=== PATIENT | male | born 1965 | race Caucasian/White ===

== ENCOUNTER 2018-07-20 14:55 | Emergency (ER) | payer SELFPAY ==
[~2018-07-20] VITALS: Ht 177.8 cm; Wt 85.0 kg
[2018-07-20 15:00] VITALS: BP 168/72
== END 2018-07-20 17:12 | disposition home or self-care (01) ==
LOC: ER 14:55
DX: S10.83XA Contusion of other specified part of neck, initial encounter (principal); S30.0XXA Contusion of lower back and pelvis, initial encounter; E03.9 Hypothyroidism, unspecified; V49.49XA Driver injured in collision with other motor vehicles in traffic accident, initial encounter; Y93.89 Activity, other specified; Y92.89 Other specified places as the place of occurrence of the external cause; Y99.8 Other external cause status
CPT/HCPCS: 72110; 99284